=== PATIENT | male | born 1945 | race Caucasian/White ===

== ENCOUNTER → 2016-10-24 | Outpatient (CLI) | payer MEDICARE, OTHER ==
[~2016-10-24] MED LIST: CAFF200T PO; CO Q100C10 PO; CULT10CA2 PO; GABA-282; GLUC15002 PO; MAGN1TAB25 PO; MELA1TAB20 PO; OMEGCAP9 PO; OXYC1TAB23 PO; REGL10TA6 PO; VALA1TAB2; [UNRECOGNIZED DRUG - OTHER] PO
== END ==
LOC: M SMT 14:04
PROVIDERS: ATTEND Allergy & Immunology Allergy
DX: R10.13 Epigastric pain (principal); R19.7 Diarrhea, unspecified

== ENCOUNTER → 2017-01-06 | Outpatient (CLI) | payer MEDICARE, OTHER ==
[2017-01-06 15:32] LABS: BASO % 0.4 % (0.0-1.0); EOS # 0.2 10^3/uL (0.0-0.50); EOS % 1.9 % (0.0-3.0); IMMATURE GRANULOCYTE % 0.5 % (0-0); LYMPH # 1.2 10^3/uL (1.5-4.5); LYMPH % 14.8 % (24.0-44.0); MEAN CORPUSCULAR HEMOGLOBIN 32.3 pg (27.0-33.0); MEAN CORPUSCULAR HGB CONC 34.4 g/dl (32.0-36.5); MEAN CORPUSCULAR VOLUME 93.8 fl (80.0-96.0); MONO # 0.8 10^3/uL (0.0-0.8); MONO % 9.9 % (0.0-5.0); NEUTROPHILS # 6.1 10^3/uL (1.8-7.7); NEUTROPHILS % 72.5 % (36.0-66.0); PLATELET COUNT, AUTOMATED 222 10^3/uL (150-450); RED CELL DISTRIBUTION WIDTH 13.1 % (11.5-14.5); WHITE BLOOD COUNT 8.4 10^3/uL (4.0-10.0)
[2017-01-06 15:52] LABS: ALBUMIN 3.8 GM/DL (3.2-5.2); ALBUMIN/GLOBULIN RATIO 1.23 (1.00-1.93); BILIRUBIN,DIRECT 0.1 MG/DL (0.0-0.2); BILIRUBIN,TOTAL 0.3 MG/DL (0.2-1.0); TOTAL PROTEIN 6.9 GM/DL (6.4-8.2)
== END ==
LOC: M LAB 14:31
PROVIDERS: ATTEND Internal Medicine Gastroenterology
DX: R19.7 Diarrhea, unspecified (principal)

== ENCOUNTER → 2017-01-07 | Outpatient (REF) | payer MEDICARE, OTHER | LOC: M LAB REF 09:33 | PROVIDERS: ATTEND Internal Medicine Gastroenterology | DX: R19.7 Diarrhea, unspecified (principal) ==

== ENCOUNTER 2017-01-24 12:58 | Emergency (ER) | payer MEDICARE, OTHER ==
[~2017-01-24] VITALS: Ht 165.1 cm; Wt 56.4 kg
[2017-01-24] MEDS ORDERED: GABA-282 (13:09)
[2017-01-24] MEDS ORDERED: VALA1TAB2 (13:09)
[2017-01-24] MEDS ORDERED: OXYC1TAB23 PO (13:09)
[2017-01-24] MEDS: diphenhydrAMINE INJ 50MG/ML VIAL (J1200) IV STA (14:04)
[2017-01-24] MEDS: METOCLOPRAMIDE INJ 10MG/2ML VIAL (J2765) IV ONE (14:04)
[2017-01-24] MEDS: NS 1,000 ML IV ONE (14:04)
[2017-01-24] MEDS: KETOROLAC 30 MG/ML VIAL (J1885) IV ONE (14:04)
[2017-01-24 14:31] LABS: BASO % 0.2 % (0.0-1.0); EOS % 0.1 % (0.0-3.0); IMMATURE GRANULOCYTE % 0.7 % (0-0); LYMPH # 0.7 10^3/uL (1.5-4.5); LYMPH % 3.7 % (24.0-44.0); MEAN CORPUSCULAR HGB CONC 35.4 g/dl (32.0-36.5); MEAN CORPUSCULAR VOLUME 90.4 fl (80.0-96.0); MONO # 0.6 10^3/uL (0.0-0.8); NEUTROPHILS # 16.8 10^3/uL (1.8-7.7); NEUTROPHILS % 92.3 % (36.0-66.0); PLATELET COUNT, AUTOMATED 405 10^3/uL (150-450); RED CELL DISTRIBUTION WIDTH 12.3 % (11.5-14.5); WHITE BLOOD COUNT 18.2 10^3/uL (4.0-10.0)
[2017-01-24 15:08] LABS: ALBUMIN 2.2 GM/DL (3.2-5.2); ALBUMIN/GLOBULIN RATIO 0.63 (1.00-1.93); ALKALINE PHOSPHATASE 94 U/L (45-117); ALT/SGPT 37 U/L (12-78); ANION GAP 12 MEQ/L (8-16); AST/SGOT 23 U/L (15-37); BILIRUBIN,DIRECT 0.2 MG/DL (0.0-0.2); BILIRUBIN,TOTAL 0.5 MG/DL (0.2-1.0); BLOOD UREA NITROGEN 17 MG/DL (7-18); CARBON DIOXIDE LEVEL 23 MEQ/L (21-32); CHLORIDE LEVEL 99 MEQ/L (98-107); CREATININE FOR GFR 0.98 MG/DL (0.70-1.30); GLOMERULAR FILTRATION RATE > 60.0 (>49); GLUCOSE, FASTING 142 MG/DL (80-110); POTASSIUM SERUM 4.3 MEQ/L (3.5-5.1); SODIUM LEVEL 134 MEQ/L (136-145); TOTAL PROTEIN 5.7 GM/DL (6.4-8.2)
[2017-01-24 15:11] LABS: METHADONE URINE NEGATIVE (NEGATIVE)
--- NOTE | 2017-01-24 15:51 | REP ---
Chest two views HISTORY: Fever Comparison: None The lungs are clear. The heart is normal in size. The pulmonary vasculature is normal in appearance. The bony structure is intact. IMPRESSION: No acute disease. Signed by Antonio Morley MD 01/24/2017 03:42 P
[2017-01-24] MEDS ORDERED: REGL10TA6 PO (15:59)
[2017-01-24 16:10] VITALS: BP 109/64
[2017-02-18] MEDS ORDERED: MAGN1TAB25 PO (16:46)
[2017-02-18] MEDS ORDERED: CULT10CA2 PO (16:46)
[2017-02-18] MEDS ORDERED: CAFF200T PO ×2 (16:46)
[2017-02-18] MEDS ORDERED: [UNRECOGNIZED DRUG - OTHER] PO (16:46)
[2017-02-18] MEDS ORDERED: OMEGCAP9 PO (16:46)
[2017-02-18] MEDS ORDERED: CO Q100C10 PO (16:46)
[2017-02-18] MEDS ORDERED: GLUC15002 PO (16:46)
[2017-02-18] MEDS ORDERED: MELA1TAB20 PO (16:46)
== END 2017-01-24 16:12 | disposition home or self-care (01) ==
LOC: M ED 12:58
DX: G43.909 Migraine, unspecified, not intractable, without status migrainosus (principal); G89.29 Other chronic pain; Z87.891 Personal history of nicotine dependence; Z88.1 Allergy status to other antibiotic agents; Z79.899 Other long term (current) drug therapy
CPT/HCPCS: 71020; 80048; 80076; 80307; 82550; 82553; 84443; 84484; 85025; 96374; 96375; 99283; G0480; J1200; J1885; J2765

== ENCOUNTER → 2021-06-28 | Outpatient (REF) | payer MEDICARE, OTHER ==
[~2021-06-28] MED LIST changes: -MAGN1TAB25 PO; +MAGN1TAB26 PO; -VALA1TAB2; +VALA1TAB5
== END ==
LOC: M SFHCDERM 17:08
PROVIDERS: ATTEND Nurse Practitioner Family
DX: L57.0 Actinic keratosis (principal)

== ENCOUNTER → 2022-07-01 | Outpatient (REF) | payer MEDICARE, OTHER | LOC: M SFHCDERM 13:53 | PROVIDERS: ATTEND Nurse Practitioner Family | DX: D23.5 Other benign neoplasm of skin of trunk (principal) ==